=== PATIENT | female | born 1940 | race Caucasian/White ===

== ENCOUNTER 2018-05-02 22:00 | Inpatient (IN) ==
[~2018-05-02 22:00] MED LIST: CEFTRIAXONE 2 GM INJECTION IV SCH; SALINE FLUSH 10ml SYRINGE IV PRN
--- NOTE | 2018-05-02 22:00 | History & Physical Report ---
History of Present Illness Date: 05/02/18 Chief complaint: cough, pneumonia HPI: Very pleasant 77-year-old white female who is received upon transfer from [facility] in [place]. She was hospitalized there on May 01 for right middle and lower lobe pneumonia. She first became ill last Saturday, she just returned a few days from some travel from [place]. She was seen in the office with her primary care provider on , diagnosed with pneumonia and given azithromycin and intramuscular Rocephin. later that evening she presented to the emergency room still ill and was hospitalized. She was found to be tachycardic and relatively hypotensive with 99/62. Her heart rate was in the 140s-150s but with some fluid resuscitation actually improved for documentation. She is usually out of A. fib, but says that she will flip in and out of it if she has stressors or illness. She received IV Rocephin blood cultures which are still pending, has not had sputum to provide a sputum culture for us. Her daughter and son-in-law are at the bedside, emiliano's cousin is a hospice nurse she and they were concerned because it seemed like to them the providers were not dealing with her heart rate (does appear that her HR was improved/ controlled below 100 this mono) and was very irregular "all over" and she wasn' t getting any breathing treatments, thus they requested transfer to [place]. She takes sotalol for rate and rhythm control and she sees Dr Pierce (sp?) who has outreached clinics in [place]. She says that she is not had discussions regarding full anticoagulation for dosing and aspirin. she had an unremarkable colonoscopy in 2007, she denies any history of ulcerations. Review of systems otherwise is positive for diarrhea, she's had 2 days worth, she's had loose stools and had about 5 of them today. She is anorexic, nauseated but has not vomited. She does have some pain in her right chest with cough area and she denies any chest pain with deep inspiration. She denies abdominal pain. She personally denies any edema, she denies any history of coronary artery disease are intact congestive heart failure. She does not smoke , she denies any history of COPD or asthma. She does have obstructive sleep apnea but is unable to tolerate the CPAP at night so she wears 2 L of oxygen at night for that. she does have arthritis, she's had 2 knee replacements and shoulder and hip, she'll use a cane if she has to travel large dip because of this. She does have spinal stenosis and has some right toe paresthesias from this. 10 points covered, negative otherwise except as per HPI as above Review of Systems All systems PM: 10-point ROS was reviewed, no additional remarkable complaints except Past Medical History Surgical History: 2 knee replacements. hip replacement right 1994. shoulder. appy 1973. D/C 1972. 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 Current residence: Apartment/Private Home Social history: previously has been DO NOT RESUSCITATE She is recently as of January 2018 her Zeeshan passed Medications Home Medications Medication Instructions Recorded Confirmed Type Vit C/Vit E/Lutein/Min/[place]-3 1 cap PO DAILY #0 06/14/14 05/02/18 History [Ocuvite Softgel] Acetaminophen [Tylenol] 650 mg PO Q4H PRN 05/02/18 05/02/18 History Aspirin *EC* [Ecotrin] 81 mg PO DAILY 05/02/18 05/02/18 History HydroCHLOROthiazide [HydroDIURIL] 50 mg PO DAILY 05/02/18 05/02/18 History Ibuprofen 400 mg PO Q4H PRN 05/02/18 05/02/18 History Multivit with Iron-Minerals 1 each PO DAILY 05/02/18 05/02/18 History [Complete Senior] Potassium Chloride [K-Tab ER] 20 meq PO DAILY 05/02/18 05/02/18 History Sotalol [Betapace] 80 mg PO BID 05/02/18 05/02/18 History Allergies Allergy/AdvReac Type Severity Reaction Status Date / Time codeine AdvReac Unknown NAUSEA Verified 03/07/14 11:07 Exam Telemetry Rhythm: A-fib Comments: . General she is very pleasant she is alert and oriented 3 she is in no distress HEENT sclerae are clear She is wearing some oxygen Lungs actually sound fairly clear bilaterally Cardiovascular is irregular but rate sounds controlled heart rate was in the 90s Abdomen soft and benign Extremities trace edema Body mass index noted at 39 Results - Labs Labs: review of laboratory from outside hospital Lactate level on May 02 around midnight was 2.1 white blood cell counts the morning of the 15,000 hemoglobin 12.6 platelet count 223 sodium was 138 potassium 3.0 chloride 99 bicarb was 25 BUN 19 creatinine 1.0 Reports that chest x-ray interpreted as right middle and lower lobe pneumonias on the . Assessment and Plan (1) Right lower lobe pneumonia Current visit: Yes Status: Acute (2) Sepsis Problem details: present on admit Current visit: Yes Status: Acute (3) Atrial fibrillation Current visit: Yes Status: Acute (4) Spinal stenosis Current visit: Yes Status: Acute (5) Osteoarthritis Current visit: Yes Status: Acute (6) HTN (hypertension) Current visit: Yes Status: Acute (7) Hypokalemia Current visit: Yes Status: Acute (8) Diarrhea Current visit: Yes Status: Acute Assessment and Plan: 1. Right middle and lower lobe pneumonia, Community-acquired 2. Sepsis present on admission 3. atrial fibrillation, rate has been intermittently controlled 4. History of hypertension, 5. hypokalemia 6. diarrhea, sounds like again prior to receiving antibiotics 7. spinal stenosis with some 8. obstructive sleep apnea treated with nighttime oxygen will continue treatment with Rocephin, will change azithromycin to doxycycline with concerns of possible QT prolongation issues and monitor on telemetry SResume sotalol this evening as her blood pressure was in the 140s or so ago Continue supportive care s ambulate Lovenox for DVT prophylaxis SWe should probably have a discussion with her about s stroke prophylaxis with full anticoagulation, she states that she doesn't remember having a conversation about that, primary care physician documents that she refused consideration of that in 2009 but sounds like we need to revisit this She has previously stated necessitate continued on wishes - Physician Narrative Narrative: Date: 05/02/18 Time: 2129 Sepsis Assessment - Evaluation SIRS Criteria: temperature > 100.9, pulse > 90 beats/minute, WBC > 12,000 Severe Sepsis: lactate > 2.0 mg/dL Hospital Course Summary Disclaimer: The visit summary below is not to be considered part of the above Progress Note.
--- OUTSIDE RECORDS SUMMARY | 2018-05-02 22:35 | External Medical Summary | Summary of Care ---
:1940 Author Name Yarely Monreal M.D. Address [address], [place] [id number] Care Team Providers Name Role Phone Lisbeth Gonzalez Unavailable Unavailable Johnathon Kwon M.D. Unavailable Unavailable Kasandra Lynn, Preet Deluca Unavailable Unavailable Augusto Lieberman Primary Care Provider Unavailable Unavailable Unavailable Unavailable Functional Status Functional Status Health Issues Name Dates Details Functional status health issues are not documented Status: Cognitive Status Health Issues Name Dates Details Cognitive status health issues are not documented Status: Problems Name Dates Details Epidermal inclusion cyst (706.2, L72.0) Status: Active Lentigo (709.09, L81.4) Status: Active Hypertension (401.9, I10) Status: Active Obesity (278.00, E66.9) Status: Active Seborrheic keratosis (702.19, L82.1) Status: Active Inflamed seborrheic keratosis (702.11, L82.0) Status: Active Paroxysmal atrial fibrillation (427.31, I48.0) Status: Active Obstructive sleep apnea (327.23, G47.33) Status: Active Other acute sinusitis (461.8, J01.80) Status: Active Nasal congestion (478.19, R09.81) Status: Active Chronic maxillary sinusitis (473.0, J32.0) Status: Active Medications Name Dates Details Aspirin 325 MG Oral Tablet TAKE 1 TABLET DAILY. Refills: 0 Preet Slaughter M.D. Started 12-Jul-2011 ActiveTylenol 8 Hour 650 MG Oral Tablet Extended Release TAKE 1 TABLET 3-4 TIMES DAILY. Refills: 0 Preet Slaughter M.D. Started 12-Jul-2011 ActiveMultiple Vitamin Oral Tablet TAKE 1 TABLET DAILY. Refills: 0 Preet Slaughter M.D. Started 12-Jul-2011 ActiveCalcium 600 MG Oral Tablet 1 tab daily Refills: 0 Preet Slaughter M.D. Started 12-Jul-2011 ActivePotassium Chloride Judy ER 20 MEQ Oral Tablet Extended Release as directed Refills: 0 Preet Slaughter M.D. Started 12-Jul-2011 ActiveHydrochlorothiazide 50 MG Oral Tablet TAKE 1 TABLET DAILY DIRECTED. Refills: 0 Preet Slaughter M.D. Started 12-Jul-2011 ActiveSotalol HCl - 80 MG Oral Tablet TAKE 1 TABLET EVERY 12 HOURS DAILY. Refills: 0 Preet Slaughter M.D. Started 12-Jul-2011 ActiveMucinex 600 MG Oral Tablet Extended Release 12 Hour Refills: 0 Started 02-Dec-2012 ActiveBenadryl 25 MG Oral Tablet Refills: 0 Started 02-Dec-2012 ActiveFluticasone Propionate 50 MCG/ACT Nasal Suspension USE TWO SPRAY INTO EACH NOSTRIL ONCE DAILY Quantity: 1 Refills: 12 Preet Slaughter M.D. Started 02-Dec-2012 [id number] [employer] Bottle Supplies AutoCPAP 8-12 cm H2O, Permanent use, 327.23, Heated humidity, Resmed S9 with heated tubing Quantity: 1 Refills: 0 Preet Slaughter M.D. Started 02-Dec-2012 ActiveSupplies CPAP repair, services, and supplies (dx=G47.33)Mask, headgear, filters, heated tubing, chinstrap Quantity: 1 Refills: 0 Lisbeth Zarate P.ACathy Started 09-Sep-2014 ActiveICaps Oral Capsule Refills: 0 Preet Slaughter M.D. Started 15-Sep-2015 ActiveMontelukast Sodium 10 MG Oral Tablet TAKE 1 TABLET DAILY. Quantity: 30 Refills: 3 Preet Slaughter M.D. Started 24-Nov-2015 ActiveIpratropium [place] 0.06 % Nasal Solution INSTILL 2 SPRAYS IN EACH NOSTRIL THREE TIMES DAILY NEEDED Quantity: 15 Refills: 0 Preet Slaughter M.D. Started 08-Dec-2015 ActiveFluconazole 100 MG Oral Tablet 1 PO x 21 days Quantity: 21 Refills: 0 Johnathon Kwon M.D. Started 01-Feb-2016 Active Allergies and Adverse Reactions Name Dates Details Codeine Sulfate TABS Reaction: Nausea Status: Active Past Medical History Name Dates Details History of fatigue (V13.89, Z87.898) Status: Resolved Procedures Procedure Dates Details History of Knee Replacement History of Appendectomy History of Dilation And Curettage History of Hip Surgery History of Shoulder Surgery Procedures not documented Immunization Name Dates Details Immunizations not documented Family History Unknown Family Member Name Dates Details Family history of atrial fibrillation (V17.49, Z82.49) Comments: Family History Status: Active natural son Name Dates Details Family history of Obstructive Sleep Apnea Status: Active Social History Name Dates Details Smoking StatusNever smoker Vital Signs Date Test Result Details No Known Vitals to report Results Date Description Value Details Results not documented Plan of Care Planned Observations Name Dates Details Planned Goals not documented Goal Planned Encounters Appointment; Provider: Cristal Jean On 23-Oct-2016 11:20 Appointment; Provider: Lisbeth Zarate On 27-Sep-2016 11:00 Appointment; Provider: Anatoliy Castellanos On 20-Jan-2008 10:00 Instructions Instructions not documented Encounters Appointment; Yarely Monreal On 21-Mar-2016 Encounter Diagnosis: Problem not documented 09:00 Appointment; Johnathon Kwon On 01-Feb-2016 Encounter Diagnosis: Problem not documented 09:15 Appointment; Preet Slaughter On 28-Nov-2015 Encounter Diagnosis: Problem not documented 14:00 Appointment; Preet Slaughter On 15-Sep-2015 Encounter Diagnosis: Problem not documented 10:45 Appointment; Preet Slaughter On 09-Sep-2014 Encounter Diagnosis: Problem not documented 10:30 Appointment; Anatoliy Castellanos On 24-Mar-2014 Encounter Diagnosis: Problem not documented 11:00
--- OUTSIDE RECORDS SUMMARY | 2018-05-02 22:35 | External Medical Summary | Summary of Care ---
:1940 Author Name Preet Slaughter M.D. Address [address] [place], [place] [id number] Care Team Providers Name Role Phone Preet Slaughter M.D. Unavailable Unavailable Augusto Lieberman Unavailable Unavailable Unavailable Unavailable Unavailable Functional Status Functional [...] Paroxysmal atrial fibrillation (427.31, I48.0) Status: Active Nasal congestion (478.19, R09.81) Status: Active Chronic maxillary sinusitis (473.0, J32.0) Status: Active Osteoarthritis (715.90, M19.90) Status: Active Rhinorrhea (478.19, J34.89) Status: Active Allergic rhinitis due to other allergen (477.8, J30.89) Status: Active Obstructive sleep apnea (327.23, G47.33) Status: Active Medications Name Dates Details Aspirin 325 MG Oral Tablet TAKE 1 TABLET DAILY. Refills: 0 Preet Slaughter M.D. 12-Jul-2011 Active Tylenol 8 Hour 650 MG TBCR TAKE 1 TABLET 3-4 TIMES DAILY. Refills: 0 Preet Slaughter M.D. 12-Jul-2011 Active Multiple Vitamin TABS TAKE 1 TABLET DAILY. Refills: 0 Preet Slaughter M.D. 12-Jul-2011 Active Calcium 600 MG Oral Tablet 1 tab daily Refills: 0 Preet Slaughter M.D. Start 12-Jul-2011 Active Potassium Chloride Judy ER 20 MEQ Oral Tablet Extended Release as directed Refills: 0 Preet Slaughter M.D. Start 12-Jul-2011 Active HydroCHLOROthiazide 50 MG Oral Tablet TAKE 1 TABLET DAILY DIRECTED. Refills: 0 Preet Slaughter M.D. Start 12-Jul-2011 Active Sotalol HCl - 80 MG Oral Tablet TAKE 1 TABLET EVERY 12 HOURS DAILY. Refills: 0 Preet Slaughter M.D. Start 12-Jul-2011 Active Mucinex 600 MG Oral Tablet Extended Release 12 Hour Refills: 0 Start 02-Dec-2012 Active Benadryl 25 MG TABS Refills: 0 Start 02-Dec-2012 Active Supplies AutoCPAP 8-12 cm H2O, Permanent use, 327.23, Heated humidity, Resmed S9 with heated tubing Quantity: 1 Refills: 0 Preet Slaughter M.D. Start 02-Dec-2012 Active Supplies CPAP repair, services, and supplies (dx=G47.33)Mask, headgear, filters, heated tubing, chinstrap Quantity: 1 Refills: 0 Preet Slaughter M.D. Start 09-Sep-2014 Active ICaps Oral Capsule Refills: 0 Preet Slaughter M.D. Start 15-Sep-2015 Active Montelukast Sodium 10 MG Oral Tablet TAKE 1 TABLET DAILY. Quantity: 30 Refills: 3 Preet Slaughter M.D. Start 24-Nov-2015 Active Ipratropium [place] 0.06 % Nasal Solution INSTILL 2 SPRAYS IN EACH NOSTRIL THREE TIMES DAILY NEEDED Quantity: 15 Refills: 0 Preet Slaughter M.D. Start 08-Dec-2015 Active Allergies and Adverse Reactions Name Dates Details Codeine Sulfate TABS (Allergy) Reaction: Nausea Status: Active Past Medical History [...] history of Obstructive Sleep Apnea Status: Active Grandfather Name Dates Details Family history of asthma (V17.5, Z82.5) Status: Active Social History Name Dates Details - Status: Smoking Status Name Dates Details Never smoker Vital Signs Date Test Result Details 27-Sep-2016 13:00 BP Systolic 120 mm[Hg] Status: Comments: Location: ; Position: BP Diastolic 82 mm[Hg] Status: Comments: Location: ; Position: Heart Rate 78 /min Status: Comments: Location: ; Height 64.5 in Status: Weight 219 lb Status: Physical Findings 98 Status: Comments: O2 Saturation Body Mass Index Calculated 37.01 kg/m2 Status: Body Surface Area Calculated 2.04 m2 Status: Results Date Description Value Details Results not documented Plan of Care Name Dates Details Planned Observations Planned Goals not documented Planned Encounters Appointment; Provider: Rosemarie Sprague On 10-Oct-2017 11:00 Appointment; Provider: Schedule Radiology On 23-Oct-2016 11:20 Interventions Provided Medication ChangesSupplies - Renew Instructions Name Dates Details Instructions not documented Encounters Appointment; Yarely Monreal M.D. On 21-Mar-2016 Encounter Diagnosis: Problem not documented 09:00 Appointment; Johnathon Kwon M.D. On 01-Feb-2016 Encounter Diagnosis: Problem not documented 09:15 Appointment; Preet Slaughter M.D. On 28-Nov-2015 Encounter Diagnosis: Problem not documented 14:00 Appointment; Preet Slaughter M.D. On 15-Sep-2015 Encounter Diagnosis: Problem not documented 10:45
--- OUTSIDE RECORDS SUMMARY | 2018-05-02 22:35 | External Medical Summary | Summary of Care ---
:1940 Author Name Yarely Monreal M.D. Address [address] [place], [place] [id number] Care Team Providers Name Role Phone Lisbeth Gonzalez Unavailable Unavailable Preet Slaughter M.D. Unavailable Unavailable Augusto Lieberman Primary Care Provider [...] Obstructive sleep apnea (327.23, G47.33) Status: Active Nasal congestion (478.19, R09.81) Status: Active Chronic maxillary sinusitis (473.0, J32.0) Status: Active Osteoarthritis (715.90, M19.90) Status: Active Allergic rhinitis due to other allergen (477.8, J30.89) Status: Active Rhinorrhea (478.19, J34.89) Status: Active Medications Name Dates Details Aspirin [...] Refills: 12 Preet Slaughter M.D. Started 02-Dec-2012 [id number] [employer] Bottle Supplies AutoCPAP 8-12 cm H2O, [...] 3 Preet Slaughter M.D. Started 24-Nov-2015 ActiveIpratropium [place] 0.06 % Nasal Solution INSTILL 2 SPRAYS IN EACH NOSTRIL THREE TIMES DAILY NEEDED Quantity: 15 Refills: 0 Preet Slaughter M.D. Started 08-Dec-2015 Active Allergies and Adverse Reactions Name [...] smoker Vital Signs Date Test Result Details 21-Mar-2016 08:58 BP Systolic 135 mm[Hg] Status: BP Diastolic 76 mm[Hg] Status: Temperature 97.7 f Status: Heart Rate 64 /min Status: Height 64.5 in Status: Weight 221.5 lb Status: Body Mass Index Calculated 37.43 kg/m2 Status: Body Surface Area Calculated 2.05 m2 Status: Results Date Description Value Details Results not documented Plan of Care Planned Observations Name Dates Details Planned Goals not documented Goal Planned Encounters Appointment; Provider: Cristal Radiology On 23-Oct-2016 11:20 Appointment; Provider: Lisbeth Zarate [...]
--- OUTSIDE RECORDS SUMMARY | 2018-05-02 22:35 | External Medical Summary | Summary of Care ---
:1940 Author Name Johnathon Kwon M.D. Address [address] [place], [place] [id number] Care Team Providers Name Role Phone Lisbeth Gonzalez Unavailable Unavailable Johnathon Kwon M.D. Unavailable Unavailable Preet Slaughter M.D. Unavailable Unavailable [...] Refills: 12 Preet Slaughter M.D. Started 02-Dec-2012 [id number] GM Bottle Supplies AutoCPAP 8-12 cm H2O, [...] 3 Preet Slaughter M.D. Started 24-Nov-2015 ActiveIpratropium [place] 0.06 % Nasal Solution INSTILL 2 SPRAYS [...] smoker Vital Signs Date Test Result Details 01-Feb-2016 09:11 Temperature 97.6 f Status: Heart Rate 62 /min Status: Weight 224 lb Status: Body Mass Index Calculated 37.86 kg/m2 Status: Body Surface Area Calculated 2.06 m2 Status: Results Date Description Value Details Results not documented Plan of Care Planned Observations Name Dates Details Planned Goals not documented Goal Planned Encounters Appointment; Provider: Schedule Radiology On 23-Oct-2016 11:20 Appointment; Provider: Lisbeth Zarate On 27-Sep-2016 11:00 Appointment; Provider: Anatoliy Castellanos On 20-Jan-2008 10:00 Instructions Instructions not documented Encounters Appointment; Johnathon Kwon On 01-Feb-2016 Encounter Diagnosis: Problem not documented 09:15 Appointment; Preet Slaughter On 28-Nov-2015 Encounter Diagnosis: Problem not documented 14:00 Appointment; Preet Slaughter On 15-Sep-2015 Encounter Diagnosis: Problem not documented 10:45 Appointment; Preet Slaughter On 09-Sep-2014 Encounter Diagnosis: Problem not documented 10:30 Appointment; Anatoliy Castellanos On 24-Mar-2014 Encounter Diagnosis: Problem not documented 11:00
--- OUTSIDE RECORDS SUMMARY | 2018-05-02 22:35 | External Medical Summary | Summary of Care ---
:1940 Author Name Bessy Taylor Address [address] [place] [address] Care Team Providers Name Role Phone Preet [...] Obstructive sleep apnea (327.23, G47.33) Status: Active Wheezing (786.07, R06.2) Status: Active Medications Name Dates Details Aspirin 325 MG Oral Tablet TAKE 1 TABLET DAILY. Refills: 0 Preet Slaughter M.D. 12-Jul-2011 Active Tylenol 8 Hour 650 MG Oral Tablet Extended Release TAKE 1 TABLET 3-4 TIMES DAILY. Refills: 0 Preet Slaughter M.D. 12-Jul-2011 Active Multiple Vitamin TABS TAKE 1 TABLET DAILY. Refills: 0 Kasandra Lynn, Preet Poole 12-Jul-2011 Active Calcium 600 MG Oral Tablet [...] Preet Slaughter M.D. Start 24-Nov-2015 Active Ipratropium [place] 0.06 % Nasal Solution INSTILL 2 SPRAYS [...] of Hip Surgery History of Shoulder Surgery Comprehensive Metabolic Panel 1212 Ordered: THYROID STIM. HORMONE 3602 Ordered: XRay CHEST-PA & LAT Ordered: Immunization Name Dates Details Immunizations not documented [...] to report Results Date Description Value Details 12:41 CBC w/ Auto Diff 7150 WBC 8.3 K/uL Range: 4.5-11.0 RBC 4.71 mil/uL Range: 3.60-5.00 HGB 14.7 g/dL Range: 12.0-16.0 HCT 43.8 % Range: 36.0-48.0 MCV 93.2 fL Range: 80.0-99.0 MCH 31.3 pg Range: 27.3-32.5 MCHC 33.6 % Range: 32.0-36.0 RDW 14.4 % Range: 11.6-14.8 PLATELETS 229 K/uL Range: 150-400 MPV 8.0 fL Range: 6.0-11.0 %NEUTRO 60.6 % Range: 37.0-80.0 %LYMPHS 25.6 % Range: 13.0-50.0 %MONO 6.4 % Range: 0.0-12.0 %EOS 4.8 % Range: 0.0-7.0 %BASO 0.5 % Range: 0.0-2.5 %CRIS 2.0 % Range: 0.0-5.0 NEUTRO 5.0 K/uL Range: 2.0-6.9 LYMPHS 2.1 K/uL Range: 0.6-3.4 MONOS 0.5 K/uL Range: 0.0-0.9 EOS 0.4 K/uL Range: 0.0-0.7 BASO 0.0 K/uL Range: 0.0-0.2 Plan of Care Name Dates Details Planned Observations Planned Goals not documented Planned Encounters Appointment; Provider: Schedule Radiology On 23-Oct-2017 14:00 Appointment; Provider: Rosemarie Sprague On 10-Oct-2017 11:00 Appointment; Provider: Rosemarie Alvarez On 14:30 Interventions Provided Labs/Procedures/ImagingComprehensive Metabolic Panel 1212; To be Done: 16 Apr 2017THYROID STIM. HORMONE 3602; To be Done: 16 Apr 2017XRay CHEST-PA & LAT; To be Done: 16 Apr 2017CBC w/ Auto Diff 7150; Done: Apr 19 2017 12:31PM Instructions Name Dates Details Instructions not documented Encounters Appointment; Preet Slaughter M.D. On 27-Sep-2016 Encounter Diagnosis: Problem not documented 13:00 Appointment; Yarely Monreal M.D. On 21-Mar-2016 Encounter Diagnosis: Problem not documented 09:00 Appointment; Johnathon Kwon M.D. On 01-Feb-2016 Encounter Diagnosis: Problem not documented 09:15 Appointment; Preet Slaughter M.D. On 28-Nov-2015 Encounter Diagnosis: Problem not documented 14:00 Appointment; Preet Slaughter M.D. On 15-Sep-2015 Encounter Diagnosis: Problem not documented 10:45
--- OUTSIDE RECORDS SUMMARY | 2018-05-02 22:35 | External Medical Summary | Summary of Care ---
:1940 Author Name Bessy Taylor Address [address] [place] [address] Care Team Providers Name Role Phone Bessy Taylor Unavailable Unavailable Preet Slaughter M.D. Unavailable Unavailable [...] to other allergen (477.8, J30.89) Status: Active Wheezing (786.07, R06.2) Status: Active COPD, moderate (496, J44.9) Status: Active Obstructive sleep apnea (327.23, G47.33) Status: Active Chronic bronchitis (491.9, J42) Status: Active Medications Name Dates Details Aspirin 325 MG Oral Tablet TAKE 1 TABLET DAILY. Refills: 0 Kasandra Lynn, Preet Poole 12-Jul-2011 Active Tylenol 8 Hour 650 MG Oral Tablet Extended Release TAKE 1 TABLET 3-4 TIMES DAILY. Refills: 0 Ronsick M.D., Preet Poole 12-Jul-2011 Active Multiple Vitamin TABS TAKE 1 TABLET DAILY. Refills: 0 Preet Slaughter M.D. Start 12-Jul-2011 Active Calcium 600 MG Oral Tablet [...] Preet Slaughter M.D. Start 24-Nov-2015 Active Ipratropium Bucks 0.06 % Nasal Solution INSTILL 2 SPRAYS IN EACH NOSTRIL THREE TIMES DAILY NEEDED Quantity: 15 Refills: 0 Preet Slaughter M.D. Start 08-Dec-2015 Active Flovent HFA 110 MCG/ACT Inhalation Aerosol INHALE 2 PUFFS IN THE MORNING AND IN 2 PUFFS IN THE EVENING EVERY DAY. RINSE MOUTH OUT AFTER USE. Quantity: 1 Refills: 11 Bessy Taylor Start Active 12 GM Inhaler Spiriva Respimat 2.5 MCG/ACT Inhalation Aerosol Solution inhale 2 puffs once daily Quantity: 1 Refills: 11 Harrison P.A., Bessy Start Active 4 GM Inhaler Supplies CPAP repair, services and supplies, G47.33 Mask, headgear, filters, heated tubing, chinstrap Quantity: 1 Refills: 0 Harrison P.A., Bessy Start Active Allergies and Adverse Reactions Name Dates [...] smoker Vital Signs Date Test Result Details 13:56 BP Systolic 126 mm[Hg] Status: Comments: Location: ; Position: BP Diastolic 84 mm[Hg] Status: Comments: Location: ; Position: Heart Rate 69 /min Status: Comments: Location: ; Height 65 in Status: Weight 225 lb Status: Physical Findings 97 Status: Comments: O2 Saturation Body Mass Index Calculated 37.44 kg/m2 Status: Body Surface Area Calculated 2.08 m2 Status: Results Date Description Value Details 12:41 CBC [...] Range: 0.0-0.7 BASO 0.0 K/uL Range: 0.0-0.2 13:10 XRay CHEST-PA & LAT Comments: Exam Date: 04/19/2017 12:41Dictation Date: 04/19/2017 13:10 X CHEST PA & LAT 13:12 Comprehensive Metabolic Panel 1212 SODIUM 144 mmol/L Range: 133-144 POTASSIUM 4.0 mmol/L Range: 3.5-5.1 CHLORIDE 105 mmol/L Range: 98-110 CARBON DIOXIDE 29.4 mmol/L Range: 23.0-33.0 ANION GAP 10 mmol/L Range: 6-16 BUN 22 mg/dL (Above high Range: 7-18 threshold) CREATININE, SERUM 0.97 mg/dL Range: 0.55-1.02 BUN:CREATININE RATIO 23 EST GFR, >60 ml/min Range: >60 EST GFR, NON-AFR CYPRIOT 56 ml/min (Below low Range: >60 threshold) Comments: EST GFR is reported in ml/min per 1.73 m2 of body surface area. ----- GLUCOSE 99 mg/dL Range: 70-100 ALK PHOSPHATASE 74 U/L Range: 46-116 TOTAL BILIRUBIN 0.40 mg/dL Range: 0.20-1.00 AST 15 U/L Range: 8-35 ALT 22 U/L Range: 14-59 ALBUMIN 4.0 g/dL Range: 3.4-5.0 TOTAL PROTEIN 7.4 g/dL Range: 6.4-8.2 A/G RATIO 1.2 units Range: 1.0-1.8 CALCIUM 9.9 mg/dL Range: 8.5-10.1 13:52 THYROID STIM. HORMONE 3602 THYROID STIM. HORMONE 2.951 uIU/mL Range: 0.550-4.780 Comments: No established reference ranges for infants and children &lt ;2 years of age----- Plan of Care Name Dates Details Planned Observations Planned Goals not documented Planned Encounters Appointment; Provider: Schedule Radiology On 23-Oct-2017 14:00 Appointment; Provider: Rosemarie Sprague On 10-Oct-2017 11:00 Appointment; Provider: Rosemarie Alvarez On 21-Jun-2017 11:30 Interventions Provided Medication ChangesFlovent HFA 110 MCG/ACT Inhalation Aerosol - StartSpiriva Respimat 2.5 MCG/ACT Inhalation Aerosol Solution - StartSupplies - Start Instructions Name Dates Details Instructions not documented [...]
--- OUTSIDE RECORDS SUMMARY | 2018-05-02 22:35 | External Medical Summary | Summary of Care ---
:1940 Author Name Preet Slaughter M.D. Address [address] [place], [place] [id number] Care Team Providers Name Role Phone Lisbeth [...] Active Nasal congestion (478.19, R09.81) Status: Active Obstructive sleep apnea (327.23, G47.33) [...] Refills: 12 Preet Slaughter M.D. Started 02-Dec-2012 [id number] GM Bottle Supplies AutoCPAP 8-12 cm H2O, Permanent use, 327.23, Heated humidity, Resmed S9 with heated tubing Quantity: 1 Refills: 0 Preet Slaughter M.D. Started 02-Dec-2012 ActiveSupplies CPAP repair, services, and supplies (dx=G47.33)Mask, headgear, filters, heated tubing, chinstrap Quantity: 1 Refills: 0 Lisbeth Zarate P.ACathy Started 09-Sep-2014 ActiveICaps Oral Capsule Refills: 0 Preet Slaughter M.D. Started 15-Sep-2015 Active Allergies and Adverse Reactions Name Dates Details Codeine Sulfate TABS Reaction: Nausea Status: Active Procedures Procedure Dates Details History of Knee Replacement Procedures not documented Immunization Name Dates Details Immunizations not documented Family History natural son Name Dates Details Family history of Obstructive Sleep Apnea Status: Active Social History Name Dates Details Smoking StatusNever smoker Vital Signs Date Test Result Details 15-Sep-2015 10:37 BP Systolic 134 mm[Hg] Status: BP Diastolic 84 mm[Hg] Status: Heart Rate 55 /min Status: Weight 224 lb Status: O2 SAT 96 % Status: Body Mass Index Calculated 37.86 kg/m2 Status: Body Surface Area Calculated 2.06 m2 Status: Results Date Description Value Details Results not documented Plan of Care Planned Observations Name Dates Details Planned Goals not documented Goal Planned Encounters Appointment; Provider: Lisbeth Zarate On 27-Sep-2016 11:00 Appointment; Provider: Anatoliy Castellanos On 20-Jan-2008 10:00 Instructions Instructions not documented Encounters Appointment; Preet Slaughter On 15-Sep-2015 Encounter Diagnosis: Problem not documented 10:45 Appointment; Preet Slaughter On 09-Sep-2014 Encounter Diagnosis: Problem not documented 10:30 Appointment; Anatoliy Castellanos On 24-Mar-2014 Encounter Diagnosis: Problem not documented 11:00
--- OUTSIDE RECORDS SUMMARY | 2018-05-02 22:35 | External Medical Summary | Summary of Care ---
:1940 Author Name Preet Slaughter M.D. Address [address] [place], [place] [id number] Care Team Providers Name Role Phone Lisbeth [...] Other acute sinusitis (461.8, J01.80) Status: Active Medications Name Dates Details Aspirin [...] Refills: 12 Preet Slaughter M.D. Started 02-Dec-2012 [id number] GM Bottle Supplies AutoCPAP 8-12 cm H2O, [...] Refills: 3 Preet Slaughter M.D. Started 24-Nov-2015 ActiveAmoxicillin-Pot Clavulanate 875-125 MG Oral Tablet TAKE 1 TABLET EVERY 12 HOURS WITH MEALS UNTIL GONE. Quantity: 20 Refills: 0 Preet Slaughter M.D. Started 28-Nov-2015 Ended 08-Dec-2015 Active Allergies and Adverse Reactions Name Dates Details Codeine Sulfate TABS Reaction: Nausea Status: Active Procedures Procedure Dates Details History of Knee Replacement Procedures not documented Immunization Name Dates Details Immunizations not documented Family History natural son Name Dates Details Family history of Obstructive Sleep Apnea Status: Active Social History Name Dates Details Smoking StatusNever smoker Vital Signs Date Test Result Details 28-Nov-2015 14:06 BP Systolic 135 mm[Hg] Status: BP Diastolic 64 mm[Hg] Status: Heart Rate 64 /min Status: Weight 224 lb Status: O2 SAT 92 % Status: Body Mass Index Calculated 37.86 kg/m2 Status: Body Surface Area Calculated 2.06 m2 Status: Results Date Description Value Details 02-Nov-2015 11:42 MAMMOGRAM-SCREENING Comments: Exam Date: 11/02/2015 10: 52Dictation Date: 11/02/2015 11:42 XM SCREENING (Better) Plan of Care Planned Observations Name Dates Details Planned Goals not documented Goal Planned Encounters Appointment; Provider: Schedule Radiology On 23-Oct-2016 11:20 Appointment; Provider: Lisbeth Zarate On 27-Sep-2016 11:00 Appointment; Provider: Anatoliy Castellanos On 20-Jan-2008 10:00 Instructions Instructions not documented Encounters Appointment; Preet Slaughter On 28-Nov-2015 Encounter Diagnosis: Problem not documented 14:00 Appointment; Preet Slaughter On 15-Sep-2015 Encounter Diagnosis: Problem not documented 10:45 Appointment; Preet Slaughter On 09-Sep-2014 Encounter Diagnosis: Problem not documented 10:30 Appointment; Anatoliy Castellanos On 24-Mar-2014 Encounter Diagnosis: Problem not documented 11:00
[2018-05-02 23:10] VITALS: BMI 38.9
[2018-05-02] MEDS: CEFTRIAXONE 1 G in NS 100 ML IV SCH (23:30)
[2018-05-02] MEDS: SOTALOL 80 MG TABLET PO SCH (23:55)
[2018-05-02] MEDS: ACETAMINOPHEN 325 MG TABLET PO PRN (23:57)
[2018-05-03] MEDS: NS with KCL 20 mEq 1,000 ML IV SCH ×3 (00:29→21:35)
[2018-05-03] MEDS: ALBUTEROL 2.5mg/3ml (0.083%) NEB AEROSOL PRN ×4 (00:34→19:40)
[2018-05-03] MEDS: PANTOPRAZOLE 20 MG TABLET PO SCH (05:57)
[2018-05-03] MEDS: SOTALOL 80 MG TABLET PO SCH ×2 (05:59→18:18)
[2018-05-03] MEDS ORDERED: POTASSIUM CHLORIDE 20 MEQ/15 ML ORAL LIQUID PO SCH (08:00)
[2018-05-03] MEDS ORDERED: AZITHROMYCIN 500 MG TABLET PO SCH (09:00)
[2018-05-03] MEDS: ENOXAPARIN 40 MG/0.4 ML INJECTION SQ SCH (09:41)
[2018-05-03] MEDS: LOPERAMIDE 2 MG CAPSULE PO PRN (11:13)
--- NOTE | 2018-05-03 15:33 | Progress Note ---
- Date 05/03/18 Pt is a 77yo female transferred here from a hospital in [place]. She was admitted there with LLL PNA, sepsis, and was in afib with RVR. Due to hypotension, her sotalol had been held, and she was remaining tachycardic. Therefore, at the request of the family, pt was transferred here. As her BP has normalized, her sotalol has been restarted, and her rates have been better controlled. She has not been requiring O2, except for using O2 at night for her YULIANA. She denies N/V/F/C. Objective Vital signs: Temperature 99.2 F 05/03/18 15:21 Pulse Rate 67 05/03/18 15:21 Respiratory Rate 16 05/03/18 15:21 Blood Pressure 129/71 05/03/18 15:21 Pulse Oximetry 96 05/03/18 15:21 Height/Weight/BMI: Height 5 ft 4 in Weight 101.9 kg Body Mass Index 38.9 - Constitutional Present: no acute distress, well developed - Routine HEENT Exam Head: Present: normocephalic, atraumatic Eye: Present: EOMI, PERRL ENT: Present: mucous membranes moist, oropharynx clear, external ear normal - Routine Respiratory Exam Present: rales (Mild coarse breath sounds at right base. ). Absent: wheezes, crackles - Routine Cardiovascular Exam Present: RRR. Absent: murmur, gallop, rubs - Routine Abdominal Exam Present: soft, normoactive bowel sounds, non distended, non tender. Absent: organomegaly - Routine Extremities Exam Present: full ROM, normal capillary refill. Absent: cyanosis, edema - Routine Skin Exam Present: intact, dry. Absent: jaundice, rash - Routine Neurological Exam Present: alert, oriented X3, CN II-XII intact, moving all extremities (5/5 strength). Absent: altered mental status - Routine Psychiatric Exam Present: normal affect. Absent: depressed, anxious Results - Labs CBC & Chem 7: 05/03/18 04:24 05/02/18 23:04 Assessment and Plan (1) Right lower lobe pneumonia Current visit: Yes Status: Acute (2) Atrial fibrillation Current visit: Yes Status: Acute (3) Sepsis Problem details: present on admit Current visit: Yes Status: Acute (4) Spinal stenosis Current visit: Yes Status: Chronic (5) Osteoarthritis Current visit: Yes Status: Chronic (6) HTN (hypertension) Current visit: Yes Status: Chronic (7) Hypokalemia Current visit: Yes Status: Acute (8) Diarrhea Current visit: Yes Status: Acute Assessment and Plan: 1. Right middle and lower lobe pneumonia, Community-acquired 2. Sepsis present on admission 3. atrial fibrillation, rate has been intermittently controlled 4. History of hypertension, 5. hypokalemia 6. diarrhea, sounds like again prior to receiving antibiotics 7. spinal stenosis with some 8. obstructive sleep apnea treated with nighttime oxygen 77yo female with: Sepsis: Due to PNA. Blood cx NGTD. Lactate normal. See below. PNA Had taken 2 days of doxy prior to admit here. Meets criteria for CAP. Treat with rocephin and doxy (Started upon admit) Currently no O2 requirements. HypoK: Replacing today, recheck in am. Check Mg in am. Atrial fibrillation: Currently rate controlled. Cont home ASA, sotalol. CHADS-VASc 4. Has been following with cardiology, who pt saw about 6 months ago , and he did not start anticoagulation. Discussed with pt, and she would like to remain on ASA rather than anticoagulation until she is able to follow up with cardiology to get their recommendations. If pt still here Saturday, we can try to get in contact with precision mill[employer] (Dr. Gray) to get his input. YULIANA: O2 at night, per her home regimen. FEN: Gen diet. Proph: Lovenox. Dispo: Likely home in 1-2 days. - Physician Narrative Narrative: Date: 05/03/18 Time: 1529 Hospital Course Summary Disclaimer: The visit summary below is not to be considered part of the above Progress Note.
[2018-05-03] MEDS: ACETAMINOPHEN 325 MG TABLET PO PRN (18:17)
[2018-05-03] MEDS: CEFTRIAXONE 1 G in NS 100 ML IV SCH (23:23)
[2018-05-04] MEDS: SOTALOL 80 MG TABLET PO SCH ×2 (06:04→17:17)
[2018-05-04] MEDS: PANTOPRAZOLE 20 MG TABLET PO SCH (06:04)
[2018-05-04] MEDS: NS with KCL 20 mEq 1,000 ML IV SCH (06:15)
[2018-05-04] MEDS: ENOXAPARIN 40 MG/0.4 ML INJECTION SQ SCH (09:06)
--- NOTE | 2018-05-04 10:21 | Progress Note ---
- Date 05/04/18 Pt developed watery, green diarrhea over the past couple days. About 5 episodes yesterday. +1 episode of fever, over 101, no recurrence since then. No N/V/CP. + dyspnea epecially with exertion. Objective Vital signs: Temperature 98.9 F 05/04/18 07:00 Pulse Rate 62 05/04/18 07:00 Respiratory Rate 20 05/04/18 07:00 Blood Pressure 153/90 H 05/04/18 07:00 Pulse Oximetry 93 05/04/18 07:00 Height/Weight/BMI: Height 5 ft 4 in Weight 102.8 kg Body Mass Index 38.9 - Constitutional Present: no acute distress, well developed - Routine HEENT Exam Head: Present: normocephalic, atraumatic Eye: Present: EOMI, PERRL ENT: Present: mucous membranes moist, oropharynx clear, external ear normal - Routine Respiratory Exam Present: rales (Coarse breath sounds right base. ). Absent: wheezes, crackles - Routine Cardiovascular Exam Present: RRR. Absent: murmur, gallop, rubs - Routine Abdominal Exam Present: soft, normoactive bowel sounds, non distended, non tender. Absent: organomegaly - Routine Extremities Exam Present: full ROM, normal capillary refill. Absent: cyanosis, edema - Routine Skin Exam Present: intact, dry. Absent: jaundice, rash - Routine Neurological Exam Present: alert, oriented X3, CN II-XII intact, moving all extremities (5/5 strength). Absent: altered mental status - Routine Psychiatric Exam Present: normal affect. Absent: depressed, anxious Results - Labs CBC & Chem 7: 05/04/18 03:51 05/04/18 03:51 Assessment and Plan (1) Right lower lobe pneumonia Current visit: Yes Status: Acute (2) Atrial fibrillation Current visit: Yes Status: Acute (3) Sepsis Problem details: present on admit Current visit: Yes Status: Acute (4) Spinal stenosis Current visit: Yes Status: Chronic (5) Osteoarthritis Current visit: Yes Status: Chronic (6) HTN (hypertension) Current visit: Yes Status: Chronic (7) Hypokalemia Current visit: Yes Status: Acute (8) Diarrhea Current visit: Yes Status: Acute Assessment and Plan: 1. Right middle and lower lobe pneumonia, Community-acquired 2. Sepsis present on admission 3. atrial fibrillation, rate has been intermittently controlled 4. History of hypertension, 5. hypokalemia 6. diarrhea, sounds like again prior to receiving antibiotics 7. spinal stenosis with some 8. obstructive sleep apnea treated with nighttime oxygen 9. Diarrhea. 77yo female with: Sepsis: Due to PNA. Blood cx NGTD. Lactate normal. See below. PNA Had taken 2 days of doxy prior to admit here, and 1 day of abx at [facility]. Meets criteria for CAP. Treat with rocephin and doxy (Started upon admit) Currently no O2 requirements. Plan discharge likely tomorrow on omnicef and doxy to complete 7 day course Diarrhea: Watery. Will check C.Diff given recent abx use. HypoK: Replaced and normalized. HypoM.8. Given hx afib, will give 2g Mag sulfate IV. Avoid PO Mg given diarrhea. ?HTN Most BPs here have been normotensive, despite being off home HCTZ. Cont to hold HCTZ and monitor, as pt may not actually be hypertensive. Atrial fibrillation: Currently rate controlled. Cont home ASA, sotalol. CHADS-VASc 3 (female, age). Has been following with cardiology, who pt saw about 6 months ago, and he did not start anticoagulation. Discussed with pt, and she would like to remain on ASA rather than anticoagulation until she is able to follow up with cardiology to get their recommendations. If pt still here Saturday, we can try to get in contact with land law examiner (Dr. Gray) to get his input. YULIANA: O2 at night, per her home regimen. FEN: Gen diet. Stop IVF. Proph: Lovenox. Dispo: Likely home 05/05. - Physician Narrative Narrative: Date: 05/04/18 Time: 1016 Hospital Course Summary Disclaimer: The visit summary below is not to be considered part of the above Progress Note.
[2018-05-04] MEDS: LOPERAMIDE 2 MG CAPSULE PO PRN (10:26)
[2018-05-04] MEDS ORDERED: PNEUMOCOCCAL 23 VACCINE 0.5ml INJECTION IM ONE (12:00)
[2018-05-04] MEDS: MAGNESIUM SULFATE 1gm PREMIX 1 GM/100 ML BAG IV SCH ×2 (12:15→13:12)
[2018-05-05] MEDS: CEFTRIAXONE 1 G in NS 100 ML IV SCH (00:10)
[2018-05-05] MEDS: SOTALOL 80 MG TABLET PO SCH ×2 (06:37→09:11)
[2018-05-05] MEDS: PANTOPRAZOLE 20 MG TABLET PO SCH (06:37)
[2018-05-05 07:58] VITALS: O2SAT 94
[2018-05-05] MEDS: ALBUTEROL 2.5mg/3ml (0.083%) NEB AEROSOL PRN (08:29)
[2018-05-05] MEDS: ENOXAPARIN 40 MG/0.4 ML INJECTION SQ SCH (09:12)
--- NOTE | 2018-05-05 12:18 | Discharge Summary ---
Discharge Information Date of admission: 05/02/18 22:26 Anticipated date of discharge: 05/05/18 Attending Physician: Lisa Stearns MD Primary care physician: Augusto Servin - Discharge Diagnosis (1) Right lower lobe pneumonia Status: Acute (2) Atrial fibrillation Status: Acute (3) Sepsis Status: Acute Right middle and lower lobe pneumonia, Community-acquired Sepsis - present on admission Paroxysmal Atrial fibrillation Hypertension Hypokalemia - POA - resolved Spinal stenosis Obstructive sleep apnea - treated with nighttime oxygen 2L and CPAP Diarrhea - neg cultures 05/04, resolved 05/05 - Laboratory Labs: Admission labs 05/02/18 05/03/18 23:04 04:24 WBC 13.7 H Hgb 11.0 L Hct 33.5 L Sodium 137 Potassium 3.0 L Chloride 99 Carbon Dioxide 26 Creatinine 1.2 Glucose 105 Calcium 9.3 Dismissal labs 05/05/18 05/05/18 04:04 04:04 WBC 10.3 RBC 3.75 L Hgb 11.5 L Hct 34.6 L Sodium 141 Potassium 4.3 Chloride 108 H Carbon Dioxide 26 Anion Gap 7 BUN 14.0 Creatinine 0.9 BUN/Creatinine Ratio 16 Calcium 9.6 Neg respiratory and GI panels - Microbiology Blood cultures drawn at [facility] - Radiology Radiology: Patient reports that chest x-ray interpreted as right middle and lower lobe pneumonias on the 05/01 History of Present Illness HPI: Very pleasant 77-year-old white female who is received upon transfer from [facility] in [place]. She was hospitalized there on May 01 for right middle and lower lobe pneumonia. She first became ill last Saturday, she just returned a few days from some travel from [place]. She was seen in the office with her primary care provider on , diagnosed with pneumonia and given azithromycin and intramuscular Rocephin. later that evening she presented to the emergency room still ill and was hospitalized. She was found to be tachycardic and relatively hypotensive with 99/62. Her heart rate was in the 140s-150s but with some fluid resuscitation actually improved for documentation. She is usually out of A. fib, but says that she will flip in and out of it if she has stressors or illness. She received IV Rocephin blood cultures which are still pending, has not had sputum to provide a sputum culture for us. Her daughter and son-in-law are at the bedside, patient's cousin is a hospice nurse she and they were concerned because it seemed like to them the providers were not dealing with her heart rate (does appear that her HR was improved/ controlled below 100 this mono) and was very irregular "all over" and she wasn' t getting any breathing treatments, thus they requested transfer to [place]. She takes sotalol for rate and rhythm control and she sees Dr Gray who has outreach clinics in [place]. She says that she is not had discussions regarding full anticoagulation for dosing and aspirin. she had an unremarkable colonoscopy in 2007, she denies any history of ulcerations. Review of systems otherwise is positive for diarrhea, she's had 2 days worth, she's had loose stools and had about 5 of them today. She is anorexic, nauseated but has not vomited. She does have some pain in her right chest with cough area and she denies any chest pain with deep inspiration. She denies abdominal pain. She personally denies any edema, she denies any history of coronary artery disease are intact congestive heart failure. She does not smoke , she denies any history of COPD or asthma. She does have obstructive sleep apnea but is unable to tolerate the CPAP at night so she wears 2 L of oxygen at night for that. 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 She does have spinal stenosis and has some right toe paresthesias from this. Objective Vital signs: Temperature 98 F 05/05/18 07:57 Pulse Rate 115 H 05/05/18 09:11 Respiratory Rate 14 05/05/18 08:29 Blood Pressure 125/81 05/05/18 07:57 Pulse Oximetry 94 05/05/18 08:29 Height/Weight/BMI: Height 1.63 m Weight 105.9 kg Body Mass Index 38.9 - Constitutional Present: no acute distress, well nourished, well developed - Routine HEENT Exam Head: Present: normocephalic, atraumatic - Routine Respiratory Exam Present: decreased breath sounds (RLL), CTA bilaterally. Absent: wheezes - Routine Cardiovascular Exam Present: no murmur, irregular rhythm - Routine Abdominal Exam Present: soft, non distended, non tender - Routine Extremities Exam Present: edema (trace b/l LE), normal capillary refill - Routine Skin Exam Present: dry, warm - Routine Neurological Exam Present: alert, oriented X3 - Routine Lymphatic Exam Lymphatic: Absent: adenopathy - Routine Psychiatric Exam Present: normal affect, cooperative Hospital Course This is a general summary of the patient's hospital course. For more details refer to the complete medical record. Hospital course: Patient admitted on 05/02 transfer from [facility] in [place] for CAP. Azithromycin switched to doxy with concerns of possible QT prolongation, with continuation of Rocephin. Duoneb treatments and O2 as needed. Resumed sotalol for a-fib. Patient has been in and out of a-fib/NSR during her stay. She reports this is normal for her, especially when she is sick or anxious. Discussed her CHADsVASC score/anticoagulation and she wishes to address this w/ Dr. Gray. Patient was having diarrhea which resolved with Imodium. GI cultures /c diff were neg. Time spent with patient: discharge greater than 30 minutes Resuscitation Status: Do Not Resuscitate Discharge Plan - Discharge Disposition Discharge Date: 05/05/18 Disposition: 01 Discharged Home, Self-Care *Condition: Stable Reason For Visit (Visit label in EMR): Pneumonia - Discharge Medications *Discharge Medications: New Apixaban [Eliquis] 5 mg PO BID #60 tab Continue Vit C/Vit E/Lutein/Min/[place]-3 [Ocuvite Softgel] 1 cap PO DAILY #0 Sotalol [Betapace] 80 mg PO BID Ibuprofen 400 mg PO Q4H PRN PRN Reason: Pain HydroCHLOROthiazide [HydroDIURIL] 50 mg PO DAILY Aspirin *EC* [Ecotrin] 81 mg PO DAILY Multivit with Iron-Minerals [Complete Senior] 1 each PO DAILY Potassium Chloride [K-Tab ER] 20 meq PO DAILY Acetaminophen [Tylenol] 650 mg PO Q4H PRN PRN Reason: Pain Albuterol/Ipratropium [Duoneb] 1 unit AEROSOL QID PRN PRN Reason: soa - Discharge Packet/Instructions *Diet: Regular diet *Activity: As tolerated *Pain Management/Treatment: n/a *Wound Care: n/a Additional Instructions: Antibiotics have been completed. Use albuterol inhaler if needed for cough or shortness of breath. Start Eliquis 5 mg twice daily as a blood thinner for atrial fibrillation. Notify your physician if you have any bleeding that is not easily controlled. Call Dr. Gray's office to schedule a follow-up appointment for later this week. *Expected Signs/Symptoms: Continued improvement *Notify Physician if: You develop fever, increasing SOA or new/concerning symptoms *During Business Hours Contact: Your regular doctor. *After Business Hours Contact: Your regular doctor's office or ER. *Pending Lab/Results: No Pending Lab - Referrals/Follow Up *Referrals/Follow Up: Perez Gray MD [Physician] - (later this week for recheck of afib) Brooklyn Wheeler MD [Physician] - (schedule new pt appt) - Patient Handouts - Dismissal Complete Discharge Instructions are:: Incomplete Physician Narrative - Narrative Physician: Lisa Stearns MD Attestation Narrative: Date: 05/05/18 Time: 1714 I have independently evaluated and examined this patient. I reviewed the chart, the patient's history, and the CLOTH FINISHING RANGE OPERATOR/PA's documented findings as above. We discussed and formulated the assessment and plan as above with additions as below: Mrs. Rosenthal was seen with her daughter at bedside. Patient reports that the dyspnea was significantly improved and that she has only minimal cough. She is on room air at present with saturation of 94%. She has been in sinus rhythm since shortly after sotalol was resumed on transfer to [facility], with brief episodes of afib documented on telemetry the morning of 05/04 and heart rate suggest she was briefly in A. fib for an hour in the afternoon 05/04 after which she clearly converted to sinus rhythm/sinus bradycardia with rates between 33-67 during the evening and overnight 05/04 and early 05/05. She again converted to atrial fibrillation on the morning of 05/05 about 15 minutes after a breathing treatment and remained in A. fib for the duration of the day with HR 110-130. She is unaware of being in atrial fibrillation and denies chest pain or palpitations. On examination respirations are nonlabored with good airflow and clear breath sounds. Cardiac rhythm is irregular with low-grade tachycardia. Intermittent atrial fibrillation discussed with Dr. Gray who requested anticoagulation was Eliquis; she'll be seen in his office later this week for reassessment of medications. Given bradycardia when in sinus increasing sotalol not an option. Patient has completed 5 days of antibiotics for pneumonia-treatment completed. Stable for discharge. Prevnar-13 given prior to discharge.
[2018-05-05] MEDS ORDERED: ACETAMINOPHEN 325 MG TABLET PO PRN (12:35)
[2018-05-05] MEDS ORDERED: IBUPROFEN 200 MG TABLET PO PRN (12:35)
[2018-05-05] MEDS ORDERED: ALBUTEROL/IPRATROPIUM 2.5mg-0.5mg/3ml NEB AEROSOL PRN (12:57)
[2018-05-05 15:57] VITALS: BP 156/105; RESP 20; TEMP 96.6
[2018-05-05] MEDS ORDERED: PNEUMOCOCCAL 13 VACCINE 0.5ml INJECTION IM ONE (17:32)
[2018-05-05] MEDS ORDERED: SOTALOL 80 MG TABLET PO SCH (21:00)
[2018-05-05] MEDS ORDERED: APIXABAN 5 MG TABLET PO SCH (21:00)
[2018-05-05 21:19] VITALS: PULSE 113
[2018-05-06] MEDS ORDERED: ASPIRIN *EC* 81 MG TABLET PO SCH (09:00)
== END 2018-05-05 20:54 | disposition home or self-care (01) | DRG 871 ==
LOC: SUATTDRO 22:26 → MED 22:26
PROVIDERS: ADMIT Pediatrics; ATTEND Internal Medicine